=== PATIENT | male | born 1990 | race Caucasian/White ===

== ENCOUNTER 2018-03-16 11:49 | Emergency (ER) | payer OTHER ==
[2018-03-16] MEDS ORDERED: HYDROCODONE/APAP 5/325 TAB PO ONE (12:14)
--- NOTE | 2018-03-16 13:34 | EDPHY ---
H & P Smoking Status: Never smoked Time Seen by Provider: 03/16/18 12:14 HPI/ROS: CHIEF COMPLAINT: Right ankle injury HISTORY OF PRESENT ILLNESS: 19-year-old male presents emergency department with isolated pain to the right ankle. The patient was playing soccer and accidentally rolled his right ankle. He complains of isolated pain to the right ankle. Denies any other trauma or injury. He is unable to bear weight secondary to pain. History of multiple previous ankle sprains. ROS: Denies numbness or tingling in his toes, pain in the right calf or knee. Denies symptoms in the left lower extremity. (Elva Arteaga) Past Medical/Surgical History: Ankle sprains (Elva Arteaga) Social History: Single, senior software qa analyst (Elva Arteaga) Physical Exam: On examination the patient has obvious swelling to the the lateral aspect of the right ankle. Also some mild swelling over the medial aspect of the right ankle. Limited dorsiflexion secondary to pain. Difficult to assess ligament stability given pain. Normal sensation to light touch with normal 2 point discrimination. Strong dorsalis pedis pulse on the dorsal aspect of the right foot. Gait is not tested due to pain. (Elva Arteaga) Constitutional: Initial Vital Signs Temperature (C) 36.5 C 03/16/18 11:56 Heart Rate 78 03/16/18 11:56 Respiratory Rate 18 03/16/18 11:56 Blood Pressure 128/76 H 03/16/18 11:56 O2 Sat (%) 98 03/16/18 11:56 O2 Delivery Mode Room Air Allergies/Adverse Reactions: No Known Allergies Allergy (Unverified 03/16/18 11:55) Home Medications: Medication Instructions Recorded NK [No Known Home Meds] 03/16/18 MDM/Departure - MDM Imaging: I viewed and interpreted images myself - MDM Procedures: The patient was placed in a boot and examined post application in good placement with normal SPECIAL EDUCATION TEACHER. He was also given crutches. (Elva Arteaga) Medications Given: Discontinued Medications Hydrocodone Bitart/Acetaminophen ([place] 5/325) 1 tab PO EDNOW ONE Stop: 03/16/18 12:15 Last Admin: 03/16/18 12:16 Dose: 1 tab ED Course/Re-evaluation: 27-year-old male presents emergency department with isolated right ankle injury. X-rays reveal avulsion fracture to the lateral malleolus. He was placed in a boot and given crutches and will be nonweightbearing and follow up with orthopedic surgeon. He has an orthopedic surgeon in [place] and was also given the name of 1 on-call. Will ice and elevate to help reduce swelling and take anti-inflammatories. (Elva Arteaga) The patient was evaluated and managed by the physician video production assistant. I have reviewed this chart and I agree with the findings and plan of care as documented , as indicated by my signature. I am the secondary supervising physician. ( Yanet Garcia) - Depart Disposition: Home, Routine, Self-Care Clinical Impression: Avulsion fracture of right ankle Qualifiers: Encounter type: initial encounter Fracture type: closed Qualified Code(s): S82.891A - Other fracture of right lower leg, initial encounter for closed fracture Condition: Good Instructions: Ankle Fracture (ED) Additional Instructions: Colvin boot. Crutches. Nonweight bearing until follow up with your orthopedic surgeon in [place] or the orthopedic surgeon on-call this week. Ibuprofen 600 mg every 8 hr as needed for pain. Referrals: Justin Wall MD [Medical Doctor] - 5-7 days, call for appt. (Orthopedic surgeon on-call)
[2018-03-16 14:18] VITALS: BP 119/74
== END 2018-03-16 14:18 | disposition home or self-care (01) ==
DX: S82.891A Other fracture of right lower leg, initial encounter for closed fracture (principal); X50.9XXA Other and unspecified overexertion or strenuous movements or postures, initial encounter; Y93.66 Activity, soccer; Y92.9 Unspecified place or not applicable; Y99.9 Unspecified external cause status